=== PATIENT | female | born 2000 | race Hispanic/Latino ===

== ENCOUNTER 2023-05-14 12:21 | Outpatient (CLI) | payer MEDICAID | END 2023-05-14 12:22 | disposition home or self-care (01) | LOC: CSHULT 12:21 | PROVIDERS: ATTEND Family Medicine | DX: Z34.82 Encounter for supervision of other normal pregnancy, second trimester (principal); Z3A.23 23 weeks gestation of pregnancy | CPT/HCPCS: 76805 ==

== ENCOUNTER 2023-09-02 05:59 | Inpatient (IN) | payer MEDICAID, SELFPAY ==
[2023-09-02 07:03] VITALS: BMI 27.5
[2023-09-02] MEDS ORDERED: Diphenoxylate HCl/Atropine Tablet PO PRN (08:12)
[2023-09-02] MEDS ORDERED: hydrALAZINE 20 MG/ML VIAL SLOW IVP PRN ×2 (08:12→19:07)
[2023-09-02] MEDS ORDERED: Methylergonovine 0.2 MG/ML VIAL IM PRN (08:12)
[2023-09-02] MEDS ORDERED: Acetaminophen 500 MG TAB PO PRN (08:12)
[2023-09-02] MEDS ORDERED: Tranexamic Acid 1,000 MG/10 ML VIAL IVP PRN (08:12)
[2023-09-02] MEDS ORDERED: Carboprost 250 MCG/ML AMP IM PRN (08:12)
[2023-09-02] MEDS ORDERED: Lidocaine 1% (PF) 30 ML VIAL SC PRN (08:12)
[2023-09-02] MEDS ORDERED: Ibuprofen 800 MG TAB PO PRN (08:12)
[2023-09-02] MEDS ORDERED: Promethazine HCl 25 MG/ML VIAL IM PRN ×2 (08:12→19:07)
[2023-09-02] MEDS ORDERED: fentaNYL 50 mcg/mL 1 mL Vial SLOW IVP PRN (08:12)
[2023-09-02] MEDS ORDERED: Ondansetron PF 4 MG/2 ML Vial IVP PRN ×2 (08:12→19:07)
[2023-09-02] MEDS ORDERED: Misoprostol 200 MCG TAB PR PRN (08:12)
[2023-09-02] MEDS ORDERED: HYDROcodone/Acetaminophen 5/325 mg Tablet PO PRN ×2 (08:12→19:07)
[2023-09-02] MEDS ORDERED: Oxytocin 30 units/NS 500 ML 500 ML IV SCH ×3 (08:15)
[2023-09-02] MEDS ORDERED: Oxytocin 30 units/NS 500 ML 500 ML ONE (08:28)
[2023-09-02 08:42] LABS: Hematocrit 43.2 % (34.9-44.5); Hemoglobin 14.7 g/dL (12.0-15.5); Mean Corpuscular Hemoglobin 31.8 pg (27.0-33.0); Mean Corpuscular Volume 93.5 fl (81.6-98.3); Mean Platelet Volume 13.3 fl (7.4-10.4); Platelet Count 190 10x3/uL (150-450); RBC Distribution Width 14.3 % (11.5-14.5); Red Blood Cell (RBC) Count 4.62 10x6/uL (3.90-5.03); White Blood Cell (WBC) Count 8.9 10x3/uL (3.5-10.5)
[2023-09-02 09:02] LABS: Syphilis Antibody Index 0.03 S/CO (<1.00 Non-Reactive)
[2023-09-02 09:03] LABS: Syphilis Antibody Nonreactive (Nonreactive)
[2023-09-02 09:04] LABS: HBSAg Index 0.17 S/CO (0-0.99); Hep B Surf Ag - L&D Non-Reactive S/CO (NonReactive)
[2023-09-02] MEDS ORDERED: fentaNYL/Ropivacaine Epidural 100 ML ONE (12:44)
[2023-09-02] MEDS: Lactated Ringer's 1,000 ML IV SCH (18:38)
[2023-09-02] MEDS ORDERED: diphenhydrAMINE 25 MG CAP PO PRN (19:07)
[2023-09-02] MEDS ORDERED: Lanolin Ointment 7 GM TUBE TOP PRN (19:07)
[2023-09-02] MEDS ORDERED: Preparation H Ointment 28 GM TUBE PR PRN (19:07)
[2023-09-02] MEDS ORDERED: Benzocaine-Menthol 82.5 ML CAN TOP PRN (19:07)
[2023-09-02] MEDS ORDERED: Bisacodyl 10 MG SUPP PR PRN (19:07)
[2023-09-02] MEDS ORDERED: Boostrix 0.5 ML (Tdap) VIAL (>/=7 yrs of age) IM ONE (19:07)
[2023-09-02] MEDS ORDERED: Milk Of Magnesia 30 ML UDCUP PO PRN (19:07)
[2023-09-02] MEDS: Docusate 100 MG CAP PO SCH (21:39)
[2023-09-02] MEDS: Ibuprofen 800 MG TAB PO SCH (21:39)
[2023-09-03] MEDS: Ibuprofen 800 MG TAB PO SCH ×2 (05:52→14:22)
[2023-09-03] MEDS ORDERED: Ferrous Sulfate 325 MG TAB PO SCH (08:00)
[2023-09-03] MEDS ORDERED: Bupivacaine 0.25% HCL 30 ML VIAL ONE (08:00)
[2023-09-03] MEDS: Docusate 100 MG CAP PO SCH (08:09)
[2023-09-03] MEDS ORDERED: Prenatal Vitamin 1 TAB PO SCH (09:00)
[2023-09-03 11:33] VITALS: BP 103/55; TEMP 98.6
== END 2023-09-03 16:40 | disposition home or self-care (01) | DRG 807 ==
LOC: CSHLD 05:59 → CSHPP 17:05
PROVIDERS: ADMIT Family Medicine; ATTEND Family Medicine
PROC: 10E0XZZ Delivery of Products of Conception, External Approach (ICD-10-PCS; principal; 2023-09-02)
PROC: 10907ZC Drainage of Amniotic Fluid, Therapeutic from Products of Conception, Via Natural or Artificial Opening (ICD-10-PCS; 2023-09-02)
DX: O48.0 Post-term pregnancy (principal); Z37.0 Single live birth; Z3A.40 40 weeks gestation of pregnancy
CPT/HCPCS: 85027; 86780; 86850; 86900; 86901; 87340; J2405; J2590; S0020